=== PATIENT | female | born 1985 | race Caucasian/White ===

== ENCOUNTER 2022-04-13 14:00 | Outpatient (CLI) | payer OTHER, SELFPAY ==
--- NOTE | ~2022-04-13 | XR_ITS ---
EXAM: XR ankle RT min 3V, XR ankle LT min 3V DATE: 04/13/2022 14:22 HISTORY: FALL MEDIAL SIDE PAIN . COMPARISON: None available. FINDINGS: Normal mineralization. Multiple ossific bodies adjacent to the medial and lateral malleoli in the right ankle, likely represent fracture fragments and/or fracture osteophytes. Prominent osseo us excrescence off the lateral talar process in the left. Moderate osteophytosis at the tibiotalar tanvi int and hind and midfoot joints. Severe bilateral Achilles enthesopathy. Moderate bilateral plantar e nthesopathy. IMPRESSION: No acute osseous finding in the right or left ankles. Chronic/degenerative change as desc ribed above. Reviewed, dictated and finalized at location K. IMPRESSION: No acute osseous finding in the right or left ankles. Chronic/degen erative change as described above.
== END 2022-04-13 14:01 | disposition home or self-care (01) ==
PROVIDERS: PCP Family Medicine Adolescent Medicine; Visit Provider Physician Assistant
DX: M25.571 Pain in right ankle and joints of right foot (principal); M25.572 Pain in left ankle and joints of left foot
CPT/HCPCS: 73610

== ENCOUNTER 2023-09-03 15:44 | Inpatient (IN) | payer OTHER, SELFPAY ==
--- NOTE | ~2023-09-03 | MR_ITS ---
EXAMINATION: MR MRCP wo/w con/w 3D wo ind DATE: 09/04/2023 10:24 INDICATION: Possible pancreatic mass on CT TECHNIQUE: Magnetic resonance imaging (MRI) of the abdomen was performed without and with intravenous contrast. Sequences included coronal T2-weighted SS-FSE ARC, coronal T2-weighted FS SS-FSE, coronal T2-weighted 2D FS FIESTA, Water:Coronal LAVA-Flex, sagittal T2-weighted SS-FSE ARC, axial SSFSE ARC, axial 3D DualEcho, axial DWI B=600, axial T1-weighted LAVA, FAT:Coronal LAVA-Flex, and coronal in and opposed phase LAVA-Flex. Thick-slab T2-weighted FRFSE-XL images were obtained for magnetic resonance cholangiopancreatography (MRCP). Maximum intensity projection 3-D reconstructions of the volumetric data were created by the technologist. Postcontrast sequences included a time course of axial T1-weig hted LAVA, FAT:Coronal LAVA-Flex, coronal in and opposed phase LAVA-Flex, and Water:Coronal LAVA-Flex . COMPARISON: CT, 09/03/2023 CONTRAST: Multihance, 20 cc FINDINGS: ABDOMEN MRI: No discrete mass of the pancreas is identified. There is a diverticulum of the duodenum near the head of the pancreas. There is loss of hepatic parenchymal signal on opposed phase imaging, consistent with hepatic steatosis. The spleen, pancreas, gallbladder, and adrenal glands are normal. The right kidney is unremarkable. There is a 3 mm cyst of the left kidney. There are no pathologicall y enlarged abdominal lymph nodes. There is cellulitis of the left abdominal wall at the site of prior recent abscess. No abnormal enhancement is present after contrast administration. There are no dilat ed loops of bowel. ABDOMEN MRCP: No intrahepatic or extrahepatic biliary dilatation. No biliary stones or stricture iden tified. The pancreatic duct is not dilated. IMPRESSION: 1. No suspicious pancreatic mass identified. 2. Diffuse hepatic steatosis. Reviewed, dictated and finalized at location F. SFER DRIVER
--- NOTE | ~2023-09-03 | US_ITS ---
EXAMINATION: US abdomen limited DATE: 09/04/2023 12:03 INDICATION: Elevated liver enzymes TECHNIQUE: Multiple grayscale and Doppler ultrasound images of the abdomen were obtained. COMPARISON: None available FINDINGS: Bowel gas obscures visualization of the pancreas. The visualized portions of the pancreas a re unremarkable. The liver demonstrates increased echogenicity, heterogenous echotexture, and decreas ed through transmission. No surface nodularity. Normal hepatopetal flow in the main portal vein. The gallbladder is normal with no abnormal wall thickening, pericholecystic fluid or stones. The normal c ommon bile duct measures 2 mm. There was no sonographic Sams sign. IMPRESSION: 1. Diffuse hepatic steatosis Reviewed, dictated and finalized at location A. ST PATHOLOGY PROFESSOR
--- NOTE | ~2023-09-03 | CT_ITS ---
EXAMINATION: CT abdomen pelvis w con DATE: 09/03/2023 18:47 INDICATION: Lower abdominal pain, abscess recently drained TECHNIQUE: Computed tomography (CT) of the abdomen and pelvis was performed with 100 mL Omnipaque-350 intravenous contrast. Automated exposure control and iterative reconstruction technique were employe d. The dose-length product was 1524.62 mGy-cm. COMPARISON: None. FINDINGS: Lower thorax: Unremarkable Liver: Normal. Biliary/Gallbladder: Gallbladder is collapsed. No bile duct dilation. Pancreas: Ill-defined 1.8 cm hypodensity in the head of the pancreas Spleen: Normal. Adrenals:No mass. Kidneys: No suspicious mass, obstructing stone, or hydronephrosis. GI tract: No small or large bowel dilation. Normal appendix. Mesentery/Peritoneum: No ascites, mass, or free air. Retroperitoneum: No mass. Pelvis: Pelvic organs are within normal limits. Soft Tissues: Subcutaneous stranding in the left left mid abdomen/upper quadrant, deep to an area of dermal thickening and a small cutaneous defect. Bones: No acute osseous finding. IMPRESSION: Ill-defined pancreatic head hypodensity, mass versus artifact, recommend nonemergent but timely MRI o f the pancreas without and with contrast for further evaluation. Cutaneous defect in the left anterior abdomen with underlying subcutaneous inflammation, no abscess d etected. Reviewed, dictated and finalized at location K. URIZING FURNACE OPERATOR IMPRESSION: Ill-defined pancreatic head hypodensity, mass versus artifact, recommend noneme rgent but timely MRI of the pancreas without and with contrast for further eval uation. Cutaneous defect in the left anterior abdomen with underlying subcutaneous infl ammation, no abscess detected.
[2023-09-03 16:28] VITALS: BP 139/78; PULSE 106; RESP 18; TEMP 36.4; O2SAT 96
--- NOTE | 2023-09-03 17:48 | ED.GENADULT ---
HPI - General Adult General Chief complaint: Skin/Abscess/Foreign Body Stated complaint: abcess on stomach Time Seen by Provider: 09/03/23 17:32 Source: patient Mode of arrival: ambulatory Limitations: no limitations History of Present Illness HPI narrative: This is a 38-year-old female with PMH of hypothyroid, hypertension who presents to the ED with chief complaint worsening cellulitis to the abdomen. Reports that she was seen by her PCP yesterday morning for a drainage of a abscess. They used a skin marker to gregory the cellulitis and has spread beyond the limits of the skin marker despite taking antibiotics as prescribed. She reports pain is worsening and that she has had fevers up to 103?F at home. Reports she had 1 episode of vomiting last night and is currently nauseous. Denies urinary problems, chest pain, shortness of breath, problems bowel movements. Denies any history of diabetes or immunocompromise condition Related Data Home Medications Medication Instructions Recorded Confirmed albuterol sulfate 90 mcg/actuation 2 inh inhalation Q4H PRN Shortness 09/03/23 09/03/23 aerosol inhaler Of Breath Or Wheezing fluticasone 250 mcg-salmeterol 50 1 inh inhalation BID PRN Shortness 09/03/23 09/03/23 mcg/dose blistr powdr for Of Breath inhalation (Advair Diskus) hydroxyzine HCl 25 mg tablet 25 mg PO TID anxiety 09/03/23 09/03/23 Allergies Allergy/AdvReac Type Severity Reaction Status Date / Time codeine Allergy Unknown Nausea and Verified 09/02/23 10:25 Vomiting Review of Systems Review of Systems: All systems as dictated in HPI [facility] Surgical History Surgical History Hx of Achilles tendon repair Hx of section Hx of tonsillectomy Hx of tubal ligation Family History Family History Father Diabetes mellitus Heart disease Mother Mitral valve prolapse Grandparent Hypertension Heart problem Other Hypertension Social History Social History Smoking packs per day: 0.5 Smoking cigarettes per day: 10.0 Years smoked: 15 Smoking pack-years: 7.50 Smoking status: Current every day smoker Tobacco type: cigarettes Second hand tobacco smoke exposure: Yes Alcohol intake: never Drinks per week: 5 Substance use: never Substance use type: does not use Do You Feel Safe in your Home?: Yes Lack of Transportation: No Lack of Food: Never True Current Housing: I Have Housing Concerned About Future Housing: No Difficulty Paying Gas/Electric Bills: No Difficulty Paying for Meds: No Currently Unemployed: No Education: High School Diploma/GED Difficulty w/ Childcare or Family Care: No Living arrangements: with family Occupation/Education: unemployed Gender identity (if verbalized by the patient): Female Spiritual care concerns: No Exam Narrative: GENERAL: Well-appearing, well-nourished, and in no acute distress. HEAD: Normocephalic, atraumatic. EYES: PERRLA and EOMI. ENT: Nares clear, no rhinorrhea or epistaxis. Mucous membranes moist. Oropharynx without tonsillar hypertrophy exudate or other lesions. NECK: Supple. No adenopathy or masses. CHEST: No respiratory distress. Clear to auscultation. No wheezes rales or rhonchi HEART: Regular rate and rhythm. No murmur heard. Normal peripheral pulses. ABDOMEN: Left lower quadrant/suprapubic abdomen with open wound. I wrote for packing in place. He there is a purulence film to the lesion. It is about 2 cm x 2 cm in area. Surrounding erythema, warmth and tenderness Soft, nontender, nondistended, normal active bowel sounds. MSK: Normal range of motion. No edema. SKIN: 10 cm x 4 cm area of erythema to the lower abdomen. Extends beyond previously placed skin marker. NEURO: Alert and oriented x3. No focal deficits. PSYCH: Nor
[2023-09-03 18:10] LABS: Basophils Percent Auto 0.3 % (0.2-1.2); Eosinophils Absolute Auto 0.1 K/mm3 (0-0.3); Eosinophils Percent Auto 0.6 % (0-4.4); Hematocrit 38.2 % (37.0-47.0); Hemoglobin 10.9 g/dL (12.0-15.0); Immature Granulocyte Absolute 0.09 K/mm3 (0.00-0.031); Immature Granulocyte Percent A 0.6 % (0-0.5); Lymphocytes Absolute Auto 1.08 K/mm3 (0.9-3.2); Lymphocytes Percent Auto 7.5 % (18.3-44.2); Mean Corpuscular HGB Conc 28.5 g/dl (32-36); Mean Corpuscular Hemoglobin 20.4 pg (26-34); Mean Corpuscular Volume 71.4 fl (80-100); Mean Platelet Volume 10.2 fl (7.4-10.4); Monocytes Absolute Auto 1.2 K/mm3 (0.1-0.6); Monocytes Percent Auto 8.2 % (2.6-8.5); Neutrophils Absolute Auto 11.9 K/mm3 (1.3-6.7); Neutrophils Percent Auto 82.8 % (45.5-73.1); Platelet Count Result 329 k/mm3 (150-375); Red Blood Count 5.35 M/mm3 (4.2-5.4); Red Cell Distribution Width 16.1 % (11.5-14.5); White Blood Count 14.3 K/mm3 (4.5-10.0)
[2023-09-03 18:20] LABS: Alanine Aminotransferase 56 U/L (6-35); Alkaline Phosphatase 144 U/L (38-126); Anion Gap 10 mmol/L (8-16); Aspartate Amino Transferase 52 U/L (14-36); Bilirubin,Total 0.7 mg/dL (0.2-1.3); Blood Urea Nitrogen 10 mg/dL (7-17); Calcium 8.9 mg/dL (8.4-10.2); Carbon Dioxide 22 mmol/L (22-30); Chloride 104 mmol/L (98-107); Estimated CRCL calculation 109 ml/min; Estimated Glomerular Filt Rate > 60; Glucose 95 mg/dL (65-110); Potassium 3.6 mmol/L (3.4-5.0); Sodium 136 mmol/L (137-145)
[2023-09-03 18:26] LABS: Platelet Estimate Adequate (Adequate)
[2023-09-03 18:27] LABS: Schistocytes None Seen (NORMAL)
[2023-09-03 18:28] LABS: Anisocytosis 2+ (NORMAL); Hypochromasia 1+ (NORMAL)
[2023-09-03] MEDS: SODIUM CHLORIDE 0.9% IV 1,000 ML 999 ML IV CONT (18:28)
[2023-09-03] MEDS: KETOROLAC 15 MG/ML VIAL (*BKC) IV PUSH (18:28)
[2023-09-03] MEDS: ONDANSETRON INJ 4 MG/2 ML VIAL IV PUSH (18:28)
[2023-09-03 18:29] LABS: Microcytosis 1+ (NORMAL)
[2023-09-03] MEDS: ceFAZolin 1 GM/NS 50 ML 1 GM/50 ML BAG IVPB (19:03)
[2023-09-03 19:22] LABS: Lactic Acid Reflex 1.2 mmol/L (0.7-2.0)
--- NOTE | 2023-09-03 19:43 | PC.NURSE ---
this rn assumed care of patient. this rn took patient report from chantel locke.
--- NOTE | 2023-09-03 19:47 | PM.IMHP ---
H&P: HPI History of Present Illness Date/Time: 09/03/23 19:47 Chief Complaint: Abscess Narrative: this is a 38-year-old female with past medical history significant for morbid obesity, hypothyroidism. patient presents to the emergency room after having abdominal wall abscess drained the day before at her primary care physician's office area was well demarcated with a sharpie and was told E redness progressed beyond markings to come to emergency room, patient was given a prescription floor clindamycin and Bactrim. Patient complains of chills, headache, tenderness in that area. Denies nausea, vomiting, diarrhea, cough, sputum production. CT abdomen and pelvis was reported as: EXAMINATION: CT abdomen pelvis w con DATE: 09/03/2023 18:47 INDICATION: Lower abdominal pain, abscess recently drained TECHNIQUE: Computed tomography (CT) of the abdomen and pelvis was performed with 100 mL Omnipaque-350 intravenous contrast. Automated exposure control and iterative reconstruction technique were employed. The dose-length product was 1524.62 mGy-cm. COMPARISON: None. FINDINGS: Lower thorax: Unremarkable Liver: Normal.? Biliary/Gallbladder: Gallbladder is collapsed. No bile duct dilation. Pancreas: Ill-defined 1.8 cm hypodensity in the head of the pancreas Spleen: Normal. Adrenals:No mass. Kidneys: No suspicious mass, obstructing stone, or hydronephrosis. GI tract: No small or large bowel dilation. Normal appendix. Mesentery/Peritoneum: No ascites, mass, or free air. Retroperitoneum: No mass. Pelvis: Pelvic organs are within normal limits. Soft Tissues: Subcutaneous stranding in the left left mid abdomen/upper quadrant, deep to an area of dermal thickening and a small cutaneous defect. Bones:? No acute osseous finding. IMPRESSION: Ill-defined pancreatic head hypodensity, mass versus artifact, recommend nonemergent but timely MRI of the pancreas without and with contrast for further evaluation. Cutaneous defect in the left anterior abdomen with underlying subcutaneous inflammation, no abscess detected. patient has been admitted for further evaluation management and treatment. Review of Systems Review of Systems: Abdominal wall worsen tenderness redness Constitutional: Constitutional: Reports chills, Denies fatigue, Reports fever(s), Reports malaise, Reports poor appetite and Reports weakness Eyes: Eyes: Denies change in vision ENT: Denies dysphagia and Denies odynophagia Cardiovascular: Cardiovascular: Denies chest pain, Denies leg edema, Denies radiating jaw, neck or arm pain and Denies palpitations Respiratory: Respiratory: Denies cough, Denies excessive phlegm production, Denies dyspnea and Denies wheezing Gastrointestinal: Gastrointestinal: Denies abdominal pain, Denies dyspepsia, Denies heartburn, Denies diarrhea, Denies nausea and Denies vomiting Genitourinary: Genitourinary: Denies dysuria and Denies flank pain Musculoskeletal: Musculoskeletal: Denies abnormal gait Integumentary/Breasts: Skin/Breast: Reports erythema, Reports skin swelling and Reports wounds ( left lower quadrant incision and drainage of subcutaneous tissue abscess) Neurologic: Denies focal weakness and Denies Sensory deficit (Neuro) Psychiatric: Psychiatric: Reports no additional psychiatric complaints and Reports as per HPI Endocrine: Endocrine: Denies cold intolerance, Denies fatigue, Denies flushing, Denies heat intolerance, Denies polyphagia, Denies polydipsia and Denies palpitations Hematologic/Lymphatic: Hematologic/Lymphatic: Reports no additional hematologic/lymphatic complaints and Reports as per HPI Allergic/Immunologic: Allergic/Immunologic: Reports no additional allergic/immunologic complaints and Reports as per HPI PMFSH Surgical History Surgical History Hx of Achilles tendon repair Hx of section Hx of tonsillectomy Hx of tubal ligation Family History
[2023-09-03] MEDS: VANCOMYCIN 1,250 MG/NS 250 ML 1,250 MG/250 ML BAG 166.67 MG IVPB ×2 (19:56→21:51)
[2023-09-03 20:27] VITALS: BP 124/75; PULSE 88; RESP 16; O2SAT 100
--- NOTE | 2023-09-03 21:17 | ADMGEN ---
This patient, Edna Ortiz, was admitted to Medical Room 258-. Patient/family oriented to hospital policies and general routines including ID bracelet, bed and alarms, visiting hours, pain management, procedures, bathroom and other care routines, personal items, smoking policy, room service/diet, and visiting hours. Information on how to activate the Rapid Response Team has been discussed. Patient/Family are encouraged to report perceived risks to care and to ask questions if they do not understand what they are told or what they should do.
[2023-09-03 21:24] VITALS: BP 150/86; PULSE 91; RESP 15; TEMP 36.4; O2SAT 100
[2023-09-03] MEDS: SODIUM CHLORIDE 0.9% IV 1,000 ML 75 ML IV CONT (21:54)
[2023-09-03] MEDS: hydrOXYzine HCL 25 MG TABLET PO (23:11)
[2023-09-03] MEDS: LORazepam (*CRX) 1 MG TABLET PO (23:11)
[2023-09-03] MEDS: KETOROLAC 30 MG/ML VIAL (*BKC) IV PUSH (23:11)
[2023-09-04 05:30] VITALS: BP 122/72; PULSE 84; RESP 16; TEMP 37; O2SAT 96
[2023-09-04 05:56] LABS: Estimated CRCL calculation 121 ml/min; Estimated Glomerular Filt Rate > 60
[2023-09-04] MEDS: LEVOTHYROXINE SODIUM 50 MCG TABLET PO (06:10)
--- NOTE | 2023-09-04 07:17 | PM.IMPN ---
Progress Note: A&P Assessment and Plan (1) Cellulitis and abscess of other specified site: Code(s): L03.818 - Cellulitis of other sites; L02.818 - Cutaneous abscess of other sites Status: Acute Assessment and Plan: 09/04/23: Continue on vancomycin and cefazolin Wound and blood cultures pending. wound care to abscess site CT of the abdomen and pelvis revealed ill-defining pancreatic head hypodensity, mass versus artifact, and cellulitis changes, no abscess MRCP was negative for pancreatic mass, shown hepatic steatosis US of the abdomen shown normal pancreas, no obstructions, hepatic steatosis (2) Hypertension: Code(s): I10 - Essential (primary) hypertension Status: Acute Assessment and Plan: 09/04/23: Home medications Metoprolol B/P ranging 113/68-150/86 (3) Hypothyroidism, unspecified: Code(s): E03.9 - Hypothyroidism, unspecified Status: Acute Assessment and Plan: 09/04/23: Restarted synthroid (4) Generalized anxiety disorder: Code(s): F41.1 - Generalized anxiety disorder Status: Acute Assessment and Plan: 09/04/23: Restarted Lorazepam and hydroxyzine (5) Morbid obesity: Code(s): E66.01 - Morbid (severe) obesity due to excess calories Status: Acute Assessment and Plan: BMI 51.4, 158 kg Time Spent With Patient Time with patient: 25 - 35 minutes Subjective Date/time seen: 09/04/23 07:17 Interval history: This is a 38 year old female who presented to the hospital on 09/03/23 for evaluation of an abscess. She was seen by her primary care physician the day before and had the abscess drained in the office. She was sent home with prescriptions Clindamycin and Bactrim. Later on that day she started having chills, headache, erythema, and tenderness to the abscess site. She presented for further evaluation and treatment. Work up in the hospital included a CT of the abdomen and pelvis which revealed an ill defined pancreatic head hypodensity, mass versus artifact, cutaneous defect in the left anterior abdomen with underlying subcutaneous inflammation, no abscess was detected. Labs revealed WBC 14.3, Hgb 10.9, Na+ 136, AST 52, ALT 56, Alk phos 144, CRP 16.0. Heart rate was reported as 106 otherwise normal vital signs on presentation, she is afebrile, and currently on room air. Lactic acid was 1.2. Wound and blood cultures were obtained and are pending. She was placed on Vancomycin and Cefazolin. She was given hydroxyzine, lorazepam, Zofran, Toradol, and 1L NS while in the ED. On examination today patient is alert and oriented x4, lying in the bed. Abdomen is red around abscess site, dressing in place. She denies any pain or discomfort at this time. Considering the results of the Abdomen/pelvis CT, we will get an MRI to rule out pancreatic mass and also get an US of the abdomen to look at the pancreas and the liver as her liver enzymes are elevated. Review of Systems Review of Systems: All systems reviewed & are unremarkable except as noted in HPI and below Constitutional: Constitutional: Reports as per HPI and Reports no additional constitutional complaints Eyes: Eyes: Reports as per HPI and Reports no additional eye complaints ENT: Reports system reviewed and no additional complaints, except as documented and Reports as per HPI Cardiovascular: Cardiovascular: Reports as per HPI and Reports no additional cardiovascular complaints Respiratory: Respiratory: Reports as per HPI and Reports no additional respiratory complaints Gastrointestinal: Gastrointestinal: Reports as per HPI and Reports no additional gastrointestinal complaints Genitourinary: Genitourinary: Reports no additional female genitourinary complaints and Reports as per HPI Musculoskeletal: Musculoskeletal: Reports no additional musculoskeletal complaints and Reports as per HPI Integumentary/Breasts: Skin/Breast: Reports system reviewed and no additional complaints, excep
[2023-09-04 07:50] LABS: Alanine Aminotransferase 54 U/L (6-35); Albumin Level 3.3 g/dL (3.5-5.1); Alkaline Phosphatase 131 U/L (38-126); Anion Gap 6 mmol/L (8-16); Aspartate Amino Transferase 46 U/L (14-36); Bilirubin,Total 0.7 mg/dL (0.2-1.3); Blood Urea Nitrogen 9 mg/dL (7-17); Calcium 8.2 mg/dL (8.4-10.2); Carbon Dioxide 21 mmol/L (22-30); Chloride 108 mmol/L (98-107); Estimated CRCL calculation 121 ml/min; Estimated Glomerular Filt Rate > 60; Glucose 99 mg/dL (65-110); Sodium 135 mmol/L (137-145)
[2023-09-04 08:03] LABS: CRP 14.6 mg/dL (<1.0)
[2023-09-04] MEDS: FLUTICASONE/SALMETEROL 115-21 MCG INHALER 1 PUFF 2 PUFF INHALATION ×2 (08:27→20:38)
[2023-09-04] MEDS: LORazepam (*CRX) 1 MG TABLET PO ×4 (08:39→21:21)
[2023-09-04] MEDS: ACETAMINOPHEN 325 MG TABLET 650 MG PO ×2 (08:40→19:42)
[2023-09-04] MEDS: METOPROLOL SUCCINATE EXT REL 100 MG TABCR PO (08:40)
[2023-09-04] MEDS: VANCOMYCIN 1,500 MG/NS 500 ML 1,500 MG/500 ML BAG 250 MG IVPB ×2 (08:40→21:17)
[2023-09-04] MEDS: hydrOXYzine HCL 25 MG TABLET PO ×3 (08:40→16:42)
[2023-09-04 14:15] VITALS: BP 113/68; PULSE 78; RESP 17; TEMP 36.4; O2SAT 94
[2023-09-04] MEDS: SODIUM CHLORIDE 0.9% IV 1,000 ML 75 ML IV CONT (16:41)
[2023-09-04 19:30] VITALS: BP 125/81; PULSE 80; RESP 15; TEMP 36.6; O2SAT 100
[2023-09-05 04:47] VITALS: BP 104/63; PULSE 67; RESP 14; TEMP 36.6; O2SAT 100
[2023-09-05] MEDS: LEVOTHYROXINE SODIUM 50 MCG TABLET PO (05:55)
--- NOTE | 2023-09-05 07:56 | PM.DS ---
DS: Admitting Diagnosis Discharge Date 09/05/23 Admitting Diagnosis Cellulitis and abscess Morbid obesity hypertension hypothyroidism Generalized anxiety disorder DS: Discharge Diagnosis Discharge Diagnosis (1) Cellulitis and abscess of other specified site: Code(s): L03.818 - Cellulitis of other sites; L02.818 - Cutaneous abscess of other sites Status: Acute (2) Hypertension: Code(s): I10 - Essential (primary) hypertension Status: Acute (3) Hypothyroidism, unspecified: Code(s): E03.9 - Hypothyroidism, unspecified Status: Acute (4) Generalized anxiety disorder: Code(s): F41.1 - Generalized anxiety disorder Status: Acute (5) Morbid obesity: Code(s): E66.01 - Morbid (severe) obesity due to excess calories Status: Acute DS: Summary Hospital Course Reason for hospitalization: Cellulitis and abscess Hospital Course: This is a 38 year old female who presented to the hospital on 09/03/23 for evaluation of an abscess. She was seen by her primary care physician the day before and had the abscess drained in the office. She was sent home with prescriptions Clindamycin and Bactrim. Later on that day she started having chills, headache, erythema, and tenderness to the abscess site. She presented for further evaluation and treatment. Work up in the hospital included a CT of the abdomen and pelvis which revealed an ill defined pancreatic head hypodensity, mass versus artifact, cutaneous defect in the left anterior abdomen with underlying subcutaneous inflammation, no abscess was detected. Labs revealed WBC 14.3, Hgb 10.9, Na+ 136, AST 52, ALT 56, Alk phos 144, CRP 16.0. Heart rate was reported as 106 otherwise normal vital signs on presentation, she is afebrile, and currently on room air. Lactic acid was 1.2. Wound and blood cultures were obtained and are pending. She was placed on Vancomycin and Cefazolin. She was given hydroxyzine, lorazepam, Zofran, Toradol, and 1L NS while in the ED. US and MRCP showing a normal pancreas, hepatic steatosis. On examination today patient is alert and oriented x3, lying in the bed. Abscess site still pink but much improved. Labs today reveal WBC 6.2, Hgb 9.2, Hct 31.5, Na+ 136, AST 41, ALT 50, alk phos 113, CRP 4.8, total protein 6.0, albumin 3.1Blood cultures showing no growth on preliminary read, abscess culture showing gram positive cocci in chains on preliminary. VSS, she is afebrile, currently on room air. She denies and fever, chills, shortness of breath, chest pain, abdominal pain, nausea, vomiting, diarrhea. IV antibiotics discontinued. Patient is stable to be discharged. She will need to finish up her Bactrim and Clindamycin prescriptions and then follow up with PCP in 1 week. Final diagnosis: cellulitis and abscess Status at Discharge Cognitive/behavioral status at discharge: Alert and oriented x3 Functional status at discharge: independent ambulation Overall status at discharge: patient is progressing back to baseline Time Spent with Patient Time attestation: Total time spent providing and/or coordinating discharge services: Time spent: Greater than 30 minutes Exam Narrative: General: In no acute distress, well nourished Head: atraumatic, no encephalopathy Eyes: EOMI, PERRLA, sclera clear ENT: moist mucous membranes, nasal passages clear Neck: supple, no JVD, no adenopathy, trachea midline Cardiac: Normal S1 and S2. No murmur, gallops or friction rubs, peripheral pulses intact. Respiratory: Lungs clear to auscultation, no adventitious lung sounds Gastrointestinal: soft, large, non-distended, non-tender, normoactive bowel sounds. : voiding without difficulty. Extremities: moves all extremities well, no edema, good ROM, strength 5/5 Skin: pink and firm area noted over abscess site. Neuro: Alert and oriented x4, cranial nerves intact, no neuro deficits. Psych: normal mood, normal affect, interactive DS: Data Data Completed and Pend
[2023-09-05] MEDS: FLUTICASONE/SALMETEROL 115-21 MCG INHALER 1 PUFF 2 PUFF INHALATION (08:07)
[2023-09-05 08:25] LABS: Basophils Percent Auto 0.3 % (0.2-1.2); Eosinophils Absolute Auto 0.1 K/mm3 (0-0.3); Eosinophils Percent Auto 2.2 % (0-4.4); Hematocrit 31.5 % (37.0-47.0); Hemoglobin 9.2 g/dL (12.0-15.0); Immature Granulocyte Absolute 0.04 K/mm3 (0.00-0.031); Immature Granulocyte Percent A 0.6 % (0-0.5); Lymphocytes Percent Auto 19.3 % (18.3-44.2); Mean Corpuscular HGB Conc 29.2 g/dl (32-36); Mean Corpuscular Hemoglobin 20.8 pg (26-34); Mean Corpuscular Volume 71.3 fl (80-100); Mean Platelet Volume 9.5 fl (7.4-10.4); Monocytes Absolute Auto 0.6 K/mm3 (0.1-0.6); Monocytes Percent Auto 8.8 % (2.6-8.5); Neutrophils Absolute Auto 4.3 K/mm3 (1.3-6.7); Neutrophils Percent Auto 68.8 % (45.5-73.1); Platelet Count Result 262 k/mm3 (150-375); Red Blood Count 4.42 M/mm3 (4.2-5.4); White Blood Count 6.2 K/mm3 (4.5-10.0)
[2023-09-05] MEDS: LORazepam (*CRX) 1 MG TABLET PO (08:37)
[2023-09-05] MEDS: hydrOXYzine HCL 25 MG TABLET PO (08:37)
[2023-09-05] MEDS: METOPROLOL SUCCINATE EXT REL 100 MG TABCR PO (08:37)
[2023-09-05 08:38] LABS: Alanine Aminotransferase 50 U/L (6-35); Albumin Level 3.1 g/dL (3.5-5.1); Alkaline Phosphatase 113 U/L (38-126); Anion Gap 5 mmol/L (8-16); Aspartate Amino Transferase 41 U/L (14-36); Bilirubin,Total 0.4 mg/dL (0.2-1.3); Blood Urea Nitrogen 8 mg/dL (7-17); CRP 4.8 mg/dL (<1.0); Carbon Dioxide 24 mmol/L (22-30); Chloride 107 mmol/L (98-107); Estimated CRCL calculation 121 ml/min; Estimated Glomerular Filt Rate > 60; Glucose 94 mg/dL (65-110); Sodium 136 mmol/L (137-145)
[2023-09-05] MEDS: ACETAMINOPHEN 325 MG TABLET 650 MG PO (08:39)
[2023-09-05 08:46] LABS: Anisocytosis 1+ (NORMAL); Platelet Estimate Adequate (Adequate)
[2023-09-05 08:47] LABS: Hypochromasia 1+ (NORMAL); Schistocytes None Seen (NORMAL)
[2023-09-05 09:47] LABS: Vancomycin Trough 11.1 ug/mL (10.0-20.0)
== END 2023-09-05 11:33 | disposition home or self-care (01) | DRG 383 ==
LOC: ANHED 18:04 → ANH2MED 20:24
PROVIDERS: Admitting Provider Internal Medicine; Emergency Provider Physician Assistant; PCP Family Medicine Adolescent Medicine; Visit Provider Nurse Practitioner Acute Care
DX: L03.311 Cellulitis of abdominal wall (principal); L02.818 Cutaneous abscess of other sites; B95.62 Methicillin resistant Staphylococcus aureus infection as the cause of diseases classified elsewhere; B95.0 Streptococcus, group A, as the cause of diseases classified elsewhere; E03.9 Hypothyroidism, unspecified; E66.01 Morbid (severe) obesity due to excess calories; I10 Essential (primary) hypertension; F41.1 Generalized anxiety disorder; F17.210 Nicotine dependence, cigarettes, uncomplicated; Z28.21 Immunization not carried out because of patient refusal; Z68.43 Body mass index [BMI] 50.0-59.9, adult
CPT/HCPCS: 36415; 74177; 74183; 76376; 76705; 80053; 80202; 82565; 83605; 85025; 86140; 87040; 87070; 87147; 87181; 87186; 87205; 94640; 96361; 96365; 96366; 96367; 96375; 96376; 99285; A9270; A9577; G0378; G0379; J0690; J1885; J2405; J3370; J7030; Q9967

== ENCOUNTER 2024-01-17 14:58 | Emergency (ER) | payer OTHER, SELFPAY ==
[2024-01-17 15:04] VITALS: BP 125/82; PULSE 79; RESP 20; TEMP 36.4; O2SAT 97
--- NOTE | 2024-01-17 15:32 | ED.GENADULT ---
HPI - General Adult General Chief complaint: Upper Respiratory Infection Stated complaint: cough/throat/congestion Source: patient Mode of arrival: ambulatory Limitations: no limitations History of Present Illness HPI narrative: Patient presents for evaluation of a cough for the last 4 days. She indicates cough is productive of yellow sputum. She has mild shortness of breath and sinus congestion with clear rhinorrhea. She denies any fever, chills, nausea, vomiting, chest pain or wheezing. She has a history of asthma. She smokes 1/2 ppd. She reports similar symptoms about four weeks ago. Symptoms resolved after about 2 weeks with [id number]. Nursing staff informed me that her sister is being evaluated here for similar symptoms. Related Data Home Medications Medication Instructions Recorded Confirmed albuterol sulfate 90 mcg/actuation 2 inh inhalation Q4H PRN Shortness 09/03/23 01/17/24 aerosol inhaler Of Breath Or Wheezing hydroxyzine HCl 25 mg tablet 25 mg PO TID anxiety 09/03/23 01/17/24 Allergies Allergy/AdvReac Type Severity Reaction Status Date / Time codeine Allergy Unknown Nausea and Verified 01/17/24 15:22 Vomiting Review of Systems Review of Systems: CONSTITUTIONAL: Denies fever, chills, or sweats. EYES: Denies visual changes, redness, or discharge. ENT: Reports sinus congestion and sore throat at night. Denies otalgia CARDIOVASCULAR: Denies chest pain, palpitations, or edema. RESPIRATORY: Reports productive cough of yellow sputum and shortness of breath GASTROINTESTINAL: Denies abdominal pain, nausea, vomiting, or diarrhea. GENITOURINARY: Denies dysuria or hematuria. SKIN: Denies rash or itching. MUSCULOSKELETAL: Denies back pain, joint pain, or myalgia. NEUROLOGIC: Denies headache, numbness, dizziness, or weakness. PSYCHIATRIC: Denies anxiety or depression. [facility] Past Medical History Medical History Asthma Surgical History Surgical History Hx of Achilles tendon repair Hx of section Hx of tonsillectomy Hx of tubal ligation Family History Family History Father Diabetes mellitus Heart disease Mother Mitral valve prolapse Grandparent Hypertension Heart problem Other Hypertension Social History Social History Smoking packs per day: 0.5 Smoking cigarettes per day: 10.0 Years smoked: 15 Smoking pack-years: 7.50 Smoking status: Current every day smoker Tobacco type: cigarettes Second hand tobacco smoke exposure: Yes Alcohol intake: never Drinks per week: 5 Substance use: never Substance use type: does not use Do You Feel Safe in your Home?: Yes Lack of Transportation: No Lack of Food: Never True Current Housing: I Have Housing Concerned About Future Housing: No Difficulty Paying Gas/Electric Bills: No Difficulty Paying for Meds: No Currently Unemployed: No Education: High School Diploma/GED Difficulty w/ Childcare or Family Care: No Living arrangements: with family Occupation/Education: unemployed Gender identity (if verbalized by the patient): Female Spiritual care concerns: No Exam Narrative: GENERAL: Well-appearing, well-nourished, and in no acute distress. HEAD: Normocephalic, atraumatic. EYES: PERRLA and EOMI. ENT: Nares clear, no rhinorrhea or epistaxis. Mucous membranes moist. Oropharynx without tonsillar hypertrophy exudate or other lesions. Bilateral TMs pearly blackmon nonbulging NECK: Supple. No adenopathy or masses. No carotid bruits or JVD CHEST: Clear to auscultation. No respiratory distress. No wheezes rales or rhonchi HEART: Regular rate and rhythm. No murmur heard. Normal peripheral pulses. ABDOMEN: Soft, nontender, nondistended, normal
== END 2024-01-17 15:32 | disposition home or self-care (01) ==
PROVIDERS: Emergency Provider Nurse Practitioner; PCP Family Medicine Adolescent Medicine
DX: J06.9 Acute upper respiratory infection, unspecified (principal); J45.909 Unspecified asthma, uncomplicated; F17.210 Nicotine dependence, cigarettes, uncomplicated
CPT/HCPCS: 99213; G0463